=== PATIENT | female | born 1950 | race Caucasian/White ===

== ENCOUNTER 2025-01-15 17:23 | Emergency (ER) | payer OTHER ==
[~2025-01-15] VITALS: Ht 157.5 cm; Wt 45.4 kg
[2025-01-15] MEDS ORDERED: aspirin (17:27)
[2025-01-15] MEDS ORDERED: STATIN (17:27)
[2025-01-15] MEDS ORDERED: SERT50TA14 (17:27)
[2025-01-15 17:51] LABS: BASOPHILS % (AUTO) 0.5 % (0.0-2.0); DIFFERENTIAL COMMENT 1; EOSINOPHILS # (AUTO) 0.2 K/uL (0.0-0.7); EOSINOPHILS % (AUTO) 3.6 % (0.0-7.0); HEMATOCRIT 30.5 % (31.2-41.9); HEMOGLOBIN 10.2 g/dL (10.9-14.3); LYMPHOCYTES # (AUTO) 1.4 K/uL (0.8-4.8); MEAN CORPUSCULAR HEMOGLOBIN 30.1 uug (24.7-32.8); MEAN CORPUSCULAR HGB CONC 34 g/dL (32.3-35.6); MEAN CORPUSCULAR VOLUME 89.5 fL (75.5-95.3); MONOCYTES # (AUTO) 0.4 K/uL (0.1-1.30); MONOCYTES % (AUTO) 8.4 % (0.0-11.0); NEUTROPHILS # (AUTO) 2.4 K/uL (1.8-8.9); NEUTROPHILS % (AUTO) 55.5 % (38.5-71.5); PLATELET COUNT (AUTO) 150 K/uL (179-408); RED BLOOD CELL COUNT(AUTO) 3.41 MIL/uL (3.63-4.92); RED CELL DISTRIBUTION WIDTH 14.2 % (12.3-17.7); WHITE BLOOD COUNT (AUTO) 4.3 K/uL (3.8-11.8)
[2025-01-15 17:56] LABS: CALCIUM 9.5 mg/dL (8.5-10.1); CARBON DIOXIDE 25 mmol/L (21-32); CHLORIDE 109 mmol/L (98-107); CREATININE 1.2 mg/dL (0.6-1.3); GLUCOSE 89 mg/dL (74-106); POTASSIUM 4.2 mmol/L (3.5-5.1); SODIUM SERUM 144 mmol/L (136-145); UREA NITROGEN, BLOOD 40 mg/dL (7-18)
[2025-01-15] MEDS ORDERED: MORPHINE SULFATE 2 MG/1 ML DISP.SYRIN ONE (18:26)
[2025-01-15] MEDS ORDERED: ONDANSETRON 4 MG/2 ML VIAL ONE (18:27)
[2025-01-15] MEDS ORDERED: [UNRECOGNIZED DRUG - REMARK] (18:29)
[2025-01-15] MEDS: ONDANSETRON 4 MG/2 ML VIAL IV ONE (18:32)
[2025-01-15] MEDS: MORPHINE SULFATE 2 MG/1 ML DISP.SYRIN IV ONE (18:33)
[2025-01-15] MEDS: IV NORMAL SALINE 1000 ML BAG IV ONE (18:52)
[2025-01-15 20:42] VITALS: BP 142/77; TEMP 98; O2SAT 97
== END 2025-01-15 20:38 | disposition short-term general hospital (02) ==
LOC: ER 17:25
DX: S72.142A Displaced intertrochanteric fracture of left femur, initial encounter for closed fracture (principal); R55 Syncope and collapse; E78.5 Hyperlipidemia, unspecified; E86.0 Dehydration; F41.9 Anxiety disorder, unspecified; Z88.5 Allergy status to narcotic agent; Z88.6 Allergy status to analgesic agent; Z98.890 Other specified postprocedural states; W18.30XA Fall on same level, unspecified, initial encounter; Y93.89 Activity, other specified; Y92.89 Other specified places as the place of occurrence of the external cause; Y99.8 Other external cause status
CPT/HCPCS: 29515; 36415; 71045; 73502; 80048; 85025; 85730; 86850; 86900; 86901; 93005; 96374; 96375; 99285; J2270; J2405; J7040; A4606; A4663